=== PATIENT | female | born 1955 | race Caucasian/White ===

== ENCOUNTER 2018-04-10 10:25 | Emergency (ER) | payer MEDICARE ==
[~2018-04-10] VITALS: Ht 170.2 cm; Wt 59.1 kg
[2018-04-10 10:29] VITALS: Ht 170.2 cm; Wt 59.1 kg
[2018-04-10] MEDS ORDERED: [UNRECOGNIZED DRUG - OTHER] PO (10:30)
[2018-04-10] MEDS ORDERED: XANAX1 MG PO (10:30)
[2018-04-10] MEDS ORDERED: HORMONE REPLACEMENT (10:31)
[2018-04-10] MEDS ORDERED: NAPROSYN500 MG PO (10:32)
[2018-04-10] MEDS ORDERED: TORADOL10 MG PO (13:28)
[2018-04-10 13:35] VITALS: BP 156/92
== END 2018-04-10 13:42 | disposition home or self-care (01) ==
LOC: D.ER 10:25
DX: M54.2 Cervicalgia (principal); R51 Headache; R91.1 Solitary pulmonary nodule; Y04.2XXA Assault by strike against or bumped into by another person, initial encounter; Y93.89 Activity, other specified; Y92.810 Car as the place of occurrence of the external cause

== ENCOUNTER → 2018-04-15 10:42 | Outpatient (CLI) | payer MEDICARE ==
[2018-04-10 10:29] VITALS: BMI 20.4
[~2018-04-15 10:42] MED LIST: HORMONE REPLACEMENT; NAPROSYN500 MG PO; TORADOL10 MG PO; XANAX1 MG PO; [UNRECOGNIZED DRUG - OTHER] PO
== END | disposition home or self-care (01) ==
LOC: D.MRI 04-04 10:00 → D.RAD 04-04 10:00 → D.MRI 04-04 11:00
DX: M25.512 Pain in left shoulder (principal)

== ENCOUNTER → 2018-04-26 15:45 | Outpatient (CLI) | payer MEDICARE ==
[2018-04-10 10:29] VITALS: BMI 20.4
== END | disposition home or self-care (01) ==
LOC: D.MRI 15:45
PROVIDERS: ATTEND Orthopaedic Surgery
DX: M25.512 Pain in left shoulder (principal)

== ENCOUNTER 2019-02-01 12:38 | Emergency (ER) | payer MEDICARE ==
[~2019-02-01] VITALS: Ht 170.2 cm; Wt 73.2 kg
[2019-02-01 12:43] VITALS: Ht 170.2 cm; Wt 73.2 kg
[2019-02-01 14:25] LABS: BASOPHILS 0.4 % (0-2); EOSINOPHILS 2.3 % (0-7); HEMATOCRIT 42.8 % (36.0-48.0); IMMATURE GRANULOCYTES 0.1 % (0-5); LYMPHOCYTES 28.2 % (15-50); MCHC 32.7 g/dL (31.0-37.0); MCV 88.6 fL (80.0-100.0); MEAN PLATELET VOLUME 9.6 fL (7.4-10.4); PLATELET COUNT 272 10x3/uL (130-400); RBC 4.83 10x6/uL (4.00-5.40); RDW 12.3 % (11.5-14.5); WBC 7.7 10x3/uL (4.8-10.8)
[2019-02-01 14:39] LABS: CALC OSMOLALITY 278 mosm/kg (275-300); CALCIUM 9.7 mg/dL (8.5-10.1); CARBON DIOXIDE 27.7 mmol/L (21.0-32.0); CHLORIDE - SERUM 104 mmol/L (98-107); CREATININE - SERUM 0.7 mg/dL (0.6-1.3); GLUCOSE 85 mg/dL (74-106); POTASSIUM - SERUM 3.7 mmol/L (3.5-5.1); SODIUM 141 mmol/L (136-145); UREA NITROGEN 9 mg/dL (7-18); eGFR NON AFRICAN AMERICAN 90 mL/min (90-120)
[2019-02-01 14:45] LABS: ALBUMIN 3.9 g/dL (3.4-5.0); ALKALINE PHOSPHATASE 66 U/L (46-116); ALT (SGPT) 46 U/L (10-68); BILIRUBIN - TOTAL 0.36 mg/dL (0.2-1.3); PROTEIN - SERUM 7.6 g/dL (6.4-8.2)
[2019-02-01 15:25] LABS: APPEARANCE CLEAR (CLEAR); BILIRUBIN NEGATIVE (NEGATIVE); COLOR YELLOW (YELLOW); GLUCOSE NEGATIVE (NEGATIVE); KETONE NEGATIVE (NEGATIVE); NITRITE POSITIVE (NEGATIVE); PROTEIN NEGATIVE (NEGATIVE); SPECIFIC GRAVITY 1.015 (1.005-1.020); UROBILINOGEN NORMAL (NORMAL)
[2019-02-01] MEDS ORDERED: HYDROCODON-ACE1 EAC7 PO (15:40)
[2019-02-01 16:15] VITALS: BP 142/78
== END 2019-02-01 16:16 | disposition home or self-care (01) ==
LOC: D.ER 12:38
PROVIDERS: Emergency Medicine
DX: S30.1XXA Contusion of abdominal wall, initial encounter (principal); V80.010A Animal-rider injured by fall from or being thrown from horse in noncollision accident, initial encounter; Y93.52 Activity, horseback riding; Y92.9 Unspecified place or not applicable; S22.31XA Fracture of one rib, right side, initial encounter for closed fracture; M13.88 Other specified arthritis, other site